=== PATIENT | female | born 2000 | race Caucasian/White ===

== ENCOUNTER 2023-02-04 13:28 | Outpatient (CLI) | payer BC, SELFPAY ==
--- NOTE | ~2023-02-04 | US_ITS ---
US breast LT limited DATE: 02/04/2023 14:37 INDICATION: Left breast lump TECHNIQUE: Real-time and color flow imaging of the left breast targeted at area of clinical complaint of lump at 3:00 COMPARISON: None FINDINGS: There is a palpable lump, with underlying fatty and soft tissue density without well circum scribed margins. No suspicious mass or shadowing or suspicious vascularity is evident. The findings a re likely due to lipoma. Differential diagnosis includes hamartoma. IMPRESSION: Probable benign mixed soft tissue and fatty lesion at 3:00 at the area of palpable abnorm ality, possibly a lipoma or hamartoma BI-RADS Category 2: Benign Reviewed, dictated and finalized at Location [facility]. Reviewed, dictated and finalized at location A. IMPRESSION: Probable benign mixed soft tissue and fatty lesion at 3:00 at the a erum of palpable abnormality, possibly a lipoma or hamartoma BI-RADS Category 2: Benign
== END 2023-02-04 13:29 | disposition home or self-care (01) ==
PROVIDERS: PCP Physician Assistant; Visit Provider Obstetrics & Gynecology
DX: N63.20 Unspecified lump in the left breast, unspecified quadrant (principal)
CPT/HCPCS: 76642

== ENCOUNTER 2023-08-22 07:51 | Outpatient (CLI) | payer BC, SELFPAY ==
--- NOTE | ~2023-08-22 | US_ITS ---
US breast LT limited INDICATION: Right breast lump. TECHNIQUE: Dedicated Limited right breast ultrasound COMPARISON: 02/04/2023 FINDINGS: The right breast is composed of normal heterogeneous echotexture without focal solid or cys tic mass. IMPRESSION: 1: Normal right breast ultrasound. 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
== END 2023-08-22 07:52 | disposition home or self-care (01) ==
PROVIDERS: PCP Physician Assistant; Visit Provider Physician Assistant Surgical
DX: N63.20 Unspecified lump in the left breast, unspecified quadrant (principal)
CPT/HCPCS: 76642

== ENCOUNTER 2023-09-27 09:19 | Outpatient (CLI) | payer BC, SELFPAY ==
--- NOTE | ~2023-09-27 | MR_ITS ---
MR breast BI wo/w con 10/11/2023 08:21 CDT INDICATION: Palpable left breast mass TECHNIQUE: MRI of the breasts perform using standard protocol pre-and post IV contrast with the follo wing sequences: Axial T2 STIR, axial T1, axial vibrant T1 with fat suppression precontrast and multip hasic postcontrast. 11 cc MultiHance administered intravenously. COMPARISON: Ultrasound dated 08/22/2023 FINDINGS: There are no abnormalities on the precontrast sequences. There is minimal background parenc hymal enhancement. No enhancing lesions following contrast administration. No areas of enhancement meeting threshold criteria on CAD analysis. No evidence of signal abnormalities in the axillary or i nternal mammary node distributions. LEFT BREAST: Precontrast sequences demonstrate a large mass centered in the lateral posterior aspect of the left breast abutting the chest wall. This mass measures 8.1 x 7.8 x 5.7 cm and is isointense t o fat, consistent with lipoma. There are septations along the posterior aspect of the mass without en hancement. There is minimal background parenchymal enhancement. No enhancing lesions following cont rast administration. No areas of enhancement meeting threshold criteria on CAD analysis. No eviden ce of signal abnormalities in the axillary or internal mammary node distributions.] IMPRESSION: 1: Right breast: Negative. No evidence of malignancy. BI-RADS category 1. 2: Left breast: Fat-containing mass posterior lateral aspect of the left breast abutting the chest w all without abnormal enhancement, most compatible with benign lipoma. BI-RADS Category 2. Consider fo llow-up ultrasound for continued surveillance of this mass as clinically warranted. Reviewed, dictated and finalized at location A. IMPRESSION: 1: Right breast: Negative. No evidence of malignancy. BI-RADS category 1. 2: Left breast: Fat-containing mass posterior lateral aspect of the left breas t abutting the chest wall without abnormal enhancement, most compatible with be nign lipoma. BI-RADS Category 2. Consider follow-up ultrasound for continued hood rveillance of this mass as clinically warranted.
== END 2023-09-27 09:20 | disposition home or self-care (01) ==
PROVIDERS: PCP Physician Assistant; Visit Provider Surgery
DX: N63.20 Unspecified lump in the left breast, unspecified quadrant (principal); R92.8 Other abnormal and inconclusive findings on diagnostic imaging of breast
CPT/HCPCS: 77049; A9577; C8908

== ENCOUNTER 2023-11-03 01:36 | Day surgery (SDC) | payer BC, SELFPAY ==
[2023-11-02 14:13] VITALS: BMI 26.4
--- NOTE | 2023-11-02 14:17 | PC.NURSE ---
Addendum entered by Jackie Martinez RN 11/02/23 14:20: PT WAS INSTRUCTED NO FOOD OR DRINK AFTER MIDNIGHT. Original Note: Report to the Outpatient Waiting Room, entrance under the green pavilion located off [facility], at time 0715 on date 11/03/23. Planned Procedure Time: 0915. Time changes happen often and if your time is changed the preop area will call you the afternoon before. - You and your visitor will be asked to self-screen and do not enter if you have any COVID symptoms. - A mask is optional within the hospital at this time. Patients may have clear liquids (water, carbonated beverages, clear teas, apple juice) until 3 hours prior to surgery with a maximum of 20 ounces. - No food from midnight until time of surgery Take the following medications with a SIP of water the morning of surgery: CONTROL PILL DO NOT STOP ANY OF YOUR OTHER PRESCRIPTION MEDICATIONS PRIOR TO SURGERY ?EXCEPT THE FOLLOWING Medications to discontinue per physician: N/A Date to take last dose: N/A Please no make-up, nail croatian, hairspray, perfume, deodorant, or body powder the day of surgery. No jewelry (including any body piercings) or valuables the day of surgery, leave them at home. Please take a shower or bath the night before, or the morning of, surgery with an antibacterial soap. Wear comfortable, loose fitting clothing. - Jewelry must be removed prior to entering the operating room. Rings and piercings that are not removed may be cut off. - The hospital will not accept responsibility for valuables. - Please leave all valuables, including medications, at home the day of surgery. If you are going home after surgery, a licensed wedding transportation driver must drive you home. - NO public transportation without another adult if you receive anesthesia. - We recommend that an adult stay with you for 24 hours following discharge. - We also recommend that you do not drive, make important decision, drink alcoholic beverages, or take any drugs that were not prescribed by your health care provider for at least 24 hours after your discharge time. Follow any additional instructions given to you from your surgeon. If you or anyone in your household have experienced Covid symptoms in the past week, please notify your surgeon or the nurse liaison at the phone number below for possible testing. Telephone instructions given to PT - JOELLE and asked if any additional questions and then verbalized understanding. Patient advised to call surgeon office or pre surgery nurse liaison [phone] if any additional questions.
[2023-11-03] VITALS (10 sets, daily range): BP systolic 100–138; BP diastolic 53–91; PULSE 67–100; RESP 16; TEMP 36.2–37.2; O2SAT 95–100
--- NOTE | 2023-11-03 07:02 | WPDHPUPDATE1 ---
History and Physical Update Update Date/Time: 11/03/23 07:02 Patient seen and examined in pre-operative holding area. No interval change in medical history or symptoms. Patient remembers previous discussion of benefits and alternatives to procedure. Continues to desire to proceed with bilateral breast reduction and left breast lipoma excision. I reviewed the risks including but not limited to bleeding ,infection, asymmetry, undesireable cosmetic appearance, partial/total skin/nipple loss, no change or worsening of symptoms, change in sensation. I discussed the possible use of assistants and their level of participation in the case. Patient stated understanding and signed the consent form wishing to proceed
--- NOTE | 2023-11-03 07:03 | W.PM.PROC2 ---
Procedure Note - Detailed Date of Procedure 11/03/23 Pre-op Diagnosis lump in left breast and breast hypertrophy Post-op Diagnosis Same Procedure Performed b/l breast reduction and left breast mass excision Surgeon Mary Pandya MD Business Process Lead Tammie Aguero PA-C Anesthesia General Description of Procedure INFORMED CONSENT: The patient was seen and examined and marked in the pre-op area.? The patient signed the consent form and breasts were marked for an inferior pedicle ramirez pattern reduction. PROCEDURE IN DETAIL:The patient taken back to OR and placed on the table in supine position. Time out performed with anesthesia, surgeons and staff agreeing on patient's name site and surgery to be performed SCDs were placed on the lower extremities and inflated. After general anesthesia was administeredthe breasts were prepped and draped in sterile fashion I took my attention first to the left breast where I used a saline moisted lap pad and radhika clamp to create a breast tourniquet. I used the 38mm nipple sizer to circumscribe the nipple areolar complex and proceeded with de-epithelializing an 8cm wide inferior pedicle. I made my other skin incisions with 15 blade and elevated superior skin flaps in Copper's plane down to chest wall. Care was given to Dr. Montero who removed the left breast lipoma weighting 186grams and then I proceeded with further resection of left breast tissue til a total of 569 grams was removed. This readulted in an appropriate sized breast for the patient and further resection would have left her hypomastic and not in accordance with desired results. I irrigated with normal saline and hemostasis with bovie. I plicated the pedicle with 2-0 vicryl suture. 2-0 prolene was used to secure the t-junction. 3-0 vicryl for dermis and 4-0 monocryl for subcuticular. The NAC was brought out 5.5cm above the IMF at most prominent portion of the breast at the breast midline and secured with 3-0 vicryl and 4-0 monocryl. Next we took our attention to the right breast where similar procedure was performed. Breast tourniquet, 38mm nipple sizer, de-epithelializing an 8cm inferior pedicle and then making my other skin incisions with 15 blade and elevating skin flaps in vy's plane down to chest wall with bovie. I proceeded with resection of 368 grams of tissue from the right breast which yielded good symmetry in volume to the left breast. I irrigated with normal saline and hemostasis with bovie. I plicated the pedicle with 2-0 viryl suture. 2-0 prolene was used for the t-junction and 3-0 vicryl for dermis and 4-0 monocryl for subcuticular. Again, the nipple was brought out 5.5cm above IMF at most prominent portion of the breast at breast midline and secured with 3-0 vicryl and 4-0 monocryl. There was good symmetry and positiong to the breasts. THe skin flaps and nipples appeared viable with good cap refill. I injected 20cc 1%lido with epi and 0.5%marcaine plain along IMF and anterior axillary line of each breast. A dressing of mastisol, steri-strip, 4x4, abd, and breast binder was then applied. The patient was then awaken from anesthesia and transferred to the recovery room in stable condition.? Complications - none EBL- 60cc Disposition - home in stable conditions Tammie Aguero PA-C was essential for positiioning, retraction, closure and dressing placement. Dr. Montero assisted with left left breast reduction as well. G Billing Surgery - Charge Forward: Surgery Billing ([id number], same for tammie adding mod and not )
[2023-11-03] MEDS: ACETAMINOPHEN 500 MG TABLET 1000 MG PO (08:12)
--- NOTE | 2023-11-03 08:13 | WPDANESEPPF ---
Anes - Initial Pre Proc Eval Procedure: Operation Date: 11/03/23 09:15 Proposed Procedures p Bilateral Reduction Mammoplasty, - Mary Pandya MD s Excisional Biopsy Left Breast Mass - Nessa Montero MD Date/Time: 11/03/23 08:13 Surgeon: Mary Pandya MD Pre Op Diagnosis: lump in left breast Patient Data Age: 23 Gender: F Height: 1.52 m Weight: 63.3 kg Last Vital Signs Temp 99 F 11/03/23 07:38 Pulse 78 11/03/23 07:38 Resp 16 11/03/23 07:38 BP 124/71 11/03/23 07:38 Pulse Ox 100 11/03/23 07:38 O2 Del Method Room Air 11/03/23 07:38 Allergies Allergy/AdvReac Type Severity Reaction Status Date / Time amoxicillin Allergy Hives Verified 11/03/23 07:26 doxycycline Allergy Hives Verified 11/03/23 07:26 Home Medications Medication Instructions Recorded Confirmed Type norethindrone 1 mg-ethinyl 1 tablet PO DAILY #84 tabs 03/23/22 11/02/23 Rx estradiol 20 mcg (24)-iron 75 mg (4) tablet (Junel Fe 24) dextroamphetamine-amphetamine ER 25 mg PO DAILY 02/22/23 11/02/23 History 25 mg 24hr capsule,extend release (Adderall XR) buspirone 10 mg tablet 10 mg PO BID PRN Anxiety 08/30/23 11/02/23 History clindamycin HCl 300 mg capsule 300 mg PO Q12H #10 caps 11/03/23 Rx oxycodone-acetaminophen 5 mg-325 1 tablet PO Q6H PRN pain #12 tabs 11/03/23 Rx mg tablet (Endocet) Patient hx anesthesia problems: none Family hx anesthesia problems: none Results Review: All pre-operative results and documents have been reviewed as part of the pre-operative evaluation. [facility] Past Medical History Medical History Concussion Surgical History Surgical History No pertinent past surgical history Family History Family History Father Hypertension Hyperlipidemia Other Breast cancer Social History Social History (Updated 08/30/23 @ 08:08 by Cookie Morrison [facility]) Smoking status: Never smoker Alcohol intake: current Alcohol use details: 2/MONTH Substance use: never Substance use type: does not use Lack of Transportation: No Lack of Food: Never True Current Housing: I Have Housing Concerned About Future Housing: No Difficulty Paying Gas/Electric Bills: No Difficulty Paying for Meds: No Currently Unemployed: No Education: High School Diploma/GED Difficulty w/ Childcare or Family Care: No Living arrangements: with family Spiritual care concerns: No Anes - Eval Final PreProcedure Day of Procedure 11/03/23 08:13 Patient weight: normal Heart: regular rate and rhythm Lungs: clear to auscultation Airway: Mallampati scale (Invisalign buttons on. ) class II Neurological: alert and oriented Last oral intake: >/= 8 hours ASA classification: I Emergent: no Anesthetic plan: proceed Anesthesia type and monitoring: general and standard monitoring Results Review: All pre-operative results and documents have been reviewed as part of the pre-operative evaluation. Informed Consent: The patient's anesthetic plan and its attendant risks and benefits were discussed with the patient/family/POA. Questions were solicited and answers provided to the satisfaction of the patient/family/POA.
[2023-11-03] MEDS: LACTATED RINGERS 1,000 ML 30 ML IV CONT ×3 (08:14→13:00)
--- NOTE | 2023-11-03 08:23 | WPDHPUPDATE1 ---
History and Physical Update Update Date/Time: 11/03/23 08:23 History and Physical has been reviewed, including an updated exam of the patient. There are NO changes in the patient's condition. Risks, benefits, and alternatives have been discussed and questions answered. Patient agrees to proceed with procedure.
[2023-11-03] MEDS: ceFAZolin 2 GM/D5W 50 ML 2 GM/50 ML BAG IVPB (08:58)
[2023-11-03] MEDS: LIDO 1%/EPINEPHRINE 1:100,000 50 ML VIAL 10 ML INFILTRATE (09:29)
--- NOTE | 2023-11-03 10:00 | SUR.OPER ---
Left Breast Lipoma Weight: 186.3g
--- NOTE | 2023-11-03 10:05 | SUR.OPER ---
Left breast Lipoma delivered to Kami in pathology by Sandeep LOVE
--- NOTE | 2023-11-03 10:31 | W.PM.PROC2 ---
Procedure Note - Detailed Date of Procedure 11/03/23 Pre-op Diagnosis Large left breast lipoma Post-op Diagnosis Same Procedure Performed Excisional biopsy of left breast mass Surgeon Nessa Montero MD Cardiology Teacher Jose Angel Pandya MD Anesthesia General Description of Procedure Patient was identified in the preoperative holding area brought to the operating room suite. She was previously marked by Dr. Pandya for the reduction mammaplasty incisions. Patient was laid supine in the operating table sequential compression devices were applied. General anesthesia was induced without difficulty. Bilateral chest areas were prepped and draped in a sterile fashion. Dr. Mars started the case by making the incisions and elevating the flaps, please refer to his operative note for further details. On the left breast once the superior flap was elevated the lipoma was identified deep just anterior to the pectoralis muscle. This was well encapsulated and I proceeded to completely excise the lipoma. The specimen was sent to pathology as a fresh specimen. This measured approximately 11 cm x 13 cm. Hemostasis was assured. The case was then again turned over to Dr. Mars for completion of the bilateral reduction mammoplasty. All needles, instruments, and sponge counts were correct as reported by the operating room staff. Patient tolerated the procedure well with no immediate complications. Total blood loss for my portion of the case was minimal, less than 5cc. Estimated Blood Loss 2 Pathology Yes Complications No immediate complications Condition Stable Disposition PACU [facility] Billing Surgery - Charge Forward: Surgery Billing (CPT 54186)
--- NOTE | 2023-11-03 10:47 | SUR.OPER ---
FINAL WEIGHTS Left Breast: 493g Right Breast: 368g Confirmed by Roverto Lynn, RN and Rod Lau RN.
--- NOTE | 2023-11-03 10:57 | SUR.OPER ---
FINAL WEIGHTS Left Breast: 521 Right Breast: 368
--- NOTE | 2023-11-03 11:07 | SUR.OPER ---
ADDITIONAL LEFT BREAST TISSUE 47.9g
--- NOTE | 2023-11-03 11:28 | SUR.OPER ---
DR CLANCY REQUESTED THAT THE BREAST TISSUE WAS SENT IN [facility]. RUBY BEAVER RN
[2023-11-03] MEDS: fentaNYL CITRATE INJ (*CRX) 100 MCG/2 ML VIAL 25 MCG IV PUSH ×4 (12:05→12:15)
[2023-11-03] MEDS: MIDAZOLAM HCL (*CRX) 2 MG/2 ML VIAL 1 MG IV PUSH ×2 (12:25→12:30)
--- NOTE | 2023-11-03 12:42 | SUR.PHASEI ---
1235: PT ANXIOUS, TEARFUL. CONT TO REASSURE/CONSOLE. ALLOWED PT TO SPEAK WITH MOTHER ON PHONE. MOTHER UPDATED. MANAGING PAIN AND APPREHENSION. VSS.
[2023-11-03] MEDS: HYDROmorphone HCL INJ (*CRX) 1 MG/ML SYR 0.25 MG IV PUSH (12:50)
[2023-11-03] MEDS: oxyCODONE HCL (*CRX) 5 MG TAB IR PO (13:13)
[2023-11-03] MEDS: ONDANSETRON INJ 4 MG/2 ML VIAL IV PUSH (13:27)
== END 2023-11-03 15:20 | disposition home or self-care (01) ==
PROVIDERS: Surgery; PCP Physician Assistant; Visit Provider Plastic Surgery
PROC: 0HBV0ZZ Excision of Bilateral Breast, Open Approach (ICD-10-PCS; CPT 19318; principal; 2023-11-03 09:15)
PROC: (CPT 19120; 2023-11-03 09:15)
DX: D17.1 Benign lipomatous neoplasm of skin and subcutaneous tissue of trunk (principal); N62 Hypertrophy of breast
CPT/HCPCS: 19318; 19120; 88305; 88307; A9270; J0690; J1100; J1170; J2250; J2405; J2704; J3010; J7120

== ENCOUNTER → 2024-06-12 16:58 | Outpatient (REF) | payer BC, SELFPAY | LOC: ANHLAB 16:58 | PROVIDERS: PCP Family Medicine; Visit Provider Physician Assistant Surgical | DX: N62 Hypertrophy of breast (principal) | CPT/HCPCS: 88305 ==